=== PATIENT | male | born 1975 | race Caucasian/White ===

== ENCOUNTER 2018-12-03 11:32 | Inpatient (IN) | payer BC ==
[2018-12-03 11:56] VITALS: BMI 20.5
--- NOTE | 2018-12-03 12:33 | HP ---
CIWA Score Nausea/Vomitin Muscle Tremors: 4-Moderate,w/Arms Extend Anxiety: 5 Agitation: 2 Paroxysmal Sweats: No Perspiration Orientation: 0-Oriented Tacttile Disturbances: 0-None Auditory Disturbances: 0-None Visual Disturbances: 3-Moderate Sensitivity Headache: 6-Very Severe CIWA-Ar Total Score: 22 - Admission Criteria OASAS Guidelines: Admission for Medically Managed Detox: Requires at least one of the followin. CIWA greater than 12 2. Seizures within the past 24 hours 3. Delirium tremens within the past 24 hours 4. Hallucinations within the past 24 hours 5. Acute intervention needed for co occurring medical disorder 6. Acute intervention needed for co occurring psychiatric disorder 7. Severe withdrawal that cannot be handled at a lower level of care (continued vomiting, continued diarrhea, abnormal vital signs) requiring intravenous medication and/or fluids 8. Patient presents the following: CIWA greater than 12 Admission Criteria Met: Admission criteria met Admission ROS BHS - HPI Chief Complaint: IM TRYING TO CLEAN UP! Allergies/Adverse Reactions: Allergies Allergy/AdvReac Type Severity Reaction Status Date / Time No Known Allergies Allergy Verified 12/03/18 11:44 History of Present Illness: USED ETOH AND MARIJUANA SINCE AGE 18 DRUG USE STARTED AGE 32 IMPACT INCLUDES HOMELESSNESS, CONSTANT USE MOTIVATING ADL - Ebola screening Have you traveled outside of the country in the last 21 days: No Have you had contact with anyone from an Ebola affected area: No - Review of Systems Constitutional: Loss of Appetite, Unexplained wgt Loss EENT: reports: Blurred Vision Respiratory: reports: No Symptoms reported Cardiac: reports: No Symptoms Reported GI: reports: Nausea, Abdominal cramping : reports: No Symptoms Reported Musculoskeletal: reports: Muscle Pain Integumentary: reports: No Symptoms Reported Neuro: reports: No Symptoms reported Endocrine: reports: No Symptoms Reported Hematology: reports: No Symptoms Reported Psychiatric: reports: Anxious Patient History - Patient Medical History Hx Anemia: No Hx Asthma: No Hx Chronic Obstructive Pulmonary Disease (COPD): No Hx Cancer: No Hx Cardiac Disorders: No Hx Congestive Heart Failure: No Hx Hypertension: No Hx Hypercholesterolemia: No Hx Pacemaker: No HX Cerebrovascular Accident: No Hx Seizures: No Hx Dementia: No Hx Diabetes: No Hx Gastrointestinal Disorders: Yes (acid reflux) Hx Liver Disease: No Hx Genitourinary Disorders: No Hx Sexually Transmitted Disorders: Yes (gonorrhea and syphilis) Hx Renal Disease (ESRD): No Hx Thyroid Disease: No Hx Human Immunodeficiency Virus (HIV): Yes (2009) Hx Hepatitis C: No Hx Depression: No Hx Suicide Attempt: No Hx Bipolar Disorder: No Hx Schizophrenia: No - Patient Surgical History Past Surgical History: No Hx Neurologic Surgery: No Hx Cataract Extraction: No Hx Cardiac Surgery: No Hx Lung Surgery: No Hx Breast Surgery: No Hx Breast Biopsy: No Hx Abdominal Surgery: No Hx Appendectomy: No Hx Cholecystectomy: No Hx Genitourinary Surgery: No Hx Section: No Hx Orthopedic Surgery: Yes (JAW FRACTURE) Anesthesia Reaction: No - PPD History Date: 03/11/14 - Smoking Cessation Smoking history: Former smoker Have you smoked in the past 12 months: No Aproximately how many cigarettes per day: 0 If you are a former smoker, when did you quit?: 5 years ago Hx Chewing Tobacco Use: No Initiated information on smoking cessation: Yes 'Breaking Loose' booklet given: 12/03/18 - Substances abused GHB Substance route: Oral Frequency: Daily Amount used: 1oz Age of first use: 32 Date of last use: 12/02/18 Alcohol Substance route: Oral Frequency: 3-6 times per week Amount used: 1 pint of vodka, 1 6pck of beer Age of first use: 18 Date of last use: 12/01/18 Crystal meth Substance route: Smoking Frequency: Daily Amount used: 1 G Age of first use: 32 Date of last use: 12/02/18 Family Disease History - Family Disease History Family Disease History: Heart Disease: Mother (SUSHIL), CA: Mother Admission Physical Exam [facility] - Vital Signs Vital Signs: Vital Signs - 24 hr 12/03/18 11:44 Temperature 98.0 F Pulse Rate 841 H Respiratory 16 Rate - Physical General Appearance: Yes: Disheveled, Irritable, Anxious HEENTM: Yes: EOMI, Other (mishapen jaw, temporal indurated bony lesion) Respiratory: Yes: Lungs Clear Neck: Yes: No masses,lesions,Nodules Breast: Yes: Breast Exam Deferred Cardiology: Yes: Regular Rhythm, Regular Rate, S1, S2 Abdominal: Yes: Normal Bowel Sounds, Non Tender, Flat Genitourinary: Yes: Within Normal Limits, Other (R INGUINAL HERNIA) Back: Yes: Within Normal Limits, Normal Inspection Musculoskeletal: Yes: full range of Motion, Gait Steady Extremities: Yes: Within Normal Limits, Normal Capillary Refill, Normal Inspection Neurological: Yes: [employer] II-XII NML intact, Fully Oriented, Alert, Motor Strength 5/5, Normal Mood/Affect Integumentary: Yes: Within Normal Limits - Diagnostic (1) Gammahydroxy butarate (GHB) use disorder, severe, in early remission, in controlled environment, dependence Current Visit: Yes Status: Acute (2) Amphetamine dependence Current Visit: Yes Status: Acute (3) GERD (gastroesophageal reflux disease) Current Visit: No Status: Acute (4) Syphilis Current Visit: No Status: Acute (5) Alcohol dependence Current Visit: Yes Status: Chronic (6) HIV (human immunodeficiency virus infection) Current Visit: Yes Status: Chronic Breathalyzer - Breathalyzer Breathalyzer: 0.006 Urine Drug Screen - Test Device Lot number: [id number] Expiration date: 08/19/19 - Control Is test valid?: Yes - Results Drug screen NEGATIVE: No (TCA) Urine drug screen results: MET-Methamphetamine, BZO-Benzodiazepines Inpatient Rehab Admission - Rehab Decision to Admit Inpatient rehab admission?: No
[2018-12-03] MEDS ORDERED: BISMUTH SUBSALICYLATE 262 MG/15 ML BTL PO PRN (12:39)
[2018-12-03] MEDS ORDERED: MAG HYDROX/AL HYDROX/SIMETH 30 ML UNIT-DOSE CUP PO PRN (12:39)
[2018-12-03] MEDS ORDERED: MENTHOL/PHENOL 1 EACH UD MM PRN (12:39)
[2018-12-03] MEDS ORDERED: MAGNESIUM HYDROX 2400MG/30ML ORAL SUSPENSION 30 ML CUP PO PRN (12:39)
[2018-12-03] MEDS ORDERED: IBUPROFEN 400 MG TABLET (FP) PO PRN (12:39)
[2018-12-03] MEDS ORDERED: MAGNESIUM CITRATE 300 ML BOTTLE PO PRN (12:39)
[2018-12-03] MEDS ORDERED: MELATONIN 5 MG TABLETS PO PRN (12:39)
[2018-12-03] MEDS ORDERED: ACETAMINOPHEN 325 MG TABLET (FP) PO PRN ×2 (12:39)
[2018-12-03] MEDS: hydrOXYzine HCL 25 MG TABLET (FP) PO PRN (14:39)
[2018-12-03] MEDS: chlordiazePOXIDE HCL 25 MG CAPSULE PO PRN (14:39)
[2018-12-03] MEDS: chlordiazePOXIDE HCL 25 MG CAPSULE PO SCH ×2 (16:46→22:35)
[2018-12-03 17:16] LABS: BILIRUBIN,TOTAL 0.4 mg/dL (0.2-1); BLOOD UREA NITROGEN 12.6 mg/dL (7-18); CALCIUM 8.4 mg/dL (8.5-10.1); CREATININE 0.9 mg/dL (0.55-1.3); POTASSIUM 4.2 mmol/L (3.5-5.1); TOT PROT 6.8 g/dl (6.4-8.2)
[2018-12-03 17:23] LABS: HEMOGLOBIN 11.7 GM/dL (11.7-16.9); MCH 30.6 pg (25.7-33.7); MCHC 33.5 g/dl (32.0-35.9); MEAN CELL VOLUME 91.4 fl (80-96); MEAN PLT VOLUME 7.7 fl (7.5-11.1); PLATELET COUNT 292 K/MM3 (134-434); RBC 3.83 M/mm3 (4.00-5.60); RDW 13.9 % (11.9-15.9); WHITE BLOOD COUNT 6.9 K/mm3 (4.0-10.0)
[2018-12-03] MEDS: THIAMINE HCL 100 MG TABLET (FP) PO SCH (22:34)
[2018-12-04] MEDS: chlordiazePOXIDE HCL 25 MG CAPSULE PO SCH ×4 (05:32→22:39)
[2018-12-04 09:09] LABS: RPR REACTIVE 1:4 (NONREACTIVE)
[2018-12-04 09:10] LABS: TREPONEMA ANTIBODY PREVIOUSLY REACTIVE (NONREACTIVE)
--- NOTE | 2018-12-04 09:35 | PN ---
S CIWA - CIWA Score Nausea/Vomitin-No Nausea/No Vomiting Muscle Tremors: 3 Anxiety: 3 Agitation: 0-Normal Activity Paroxysmal Sweats: 3 Orientation: 1-Uncertain about Date Tacttile Disturbances: 0-None Auditory Disturbances: 0-None Visual Disturbances: 0-None Headache: 2-Mild CIWA-Ar Total Score: 12 S Progress Note (SOAP) Subjective: c/o shakes, sweats, anxiety, headache, and tiredness. Objective: 12/04/18 09:29 Vital Signs 12/04/18 12/04/18 03:30 06:00 Temperature 97.9 F Pulse Rate 81 Respiratory 18 130 H Rate Lab Results WBC 6.9 K/mm3 (4.0-10.0) 12/03/18 13:40 RBC 3.83 M/mm3 (4.00-5.60) L 12/03/18 13:40 Hgb 11.7 GM/dL (11.7-16.9) 12/03/18 13:40 Hct 35.0 % (35.4-49) L D 12/03/18 13:40 MCV 91.4 fl (80-96) 12/03/18 13:40 MCHC 33.5 g/dl (32.0-35.9) 12/03/18 13:40 RDW 13.9 % (11.9-15.9) 12/03/18 13:40 Plt Count 292 K/MM3 (134-434) 12/03/18 13:40 Sodium 139 mmol/L (136-145) 12/03/18 13:40 Potassium 4.2 mmol/L (3.5-5.1) 12/03/18 13:40 Chloride 107 mmol/L (98-107) 12/03/18 13:40 Carbon Dioxide 27 mmol/L (21-32) 12/03/18 13:40 Anion Gap 5 MMOL/L (8-16) L 12/03/18 13:40 BUN 12.6 mg/dL (7-18) 12/03/18 13:40 Creatinine 0.9 mg/dL (0.55-1.3) 12/03/18 13:40 Random Glucose 71 mg/dL (74-106) L 12/03/18 13:40 Calcium 8.4 mg/dL (8.5-10.1) L 12/03/18 13:40 Labs noted. Assessment: 12/04/18 09:31 AOX3, in no acute respiratory distress. Full ROM, ambulating in the unit. Withdrawal symptoms. Plan: continue detox.
[2018-12-04] MEDS: PATIENT'S OWN MEDICATION (NON-FORMULARY) (Bictegrav/Emtricit/Tenofov Ala 1 TABLET) PO SCH (10:00)
[2018-12-04] MEDS: PRENATAL VITAMINS W/ FOLIC ACID TABLET (FP) PO SCH (10:13)
[2018-12-04] MEDS ORDERED: PNEUMOC 13-VAL CONJ-DIP CRM/PF 0.5 ML DISP.SYRIN IM ONE (12:00)
[2018-12-04] MEDS: chlordiazePOXIDE HCL 25 MG CAPSULE PO PRN (12:06)
[2018-12-04] MEDS: hydrOXYzine HCL 25 MG TABLET (FP) PO PRN (18:16)
[2018-12-04] MEDS: THIAMINE HCL 100 MG TABLET (FP) PO SCH (22:39)
[2018-12-05] MEDS: chlordiazePOXIDE HCL 25 MG CAPSULE PO SCH ×4 (05:58→22:04)
[2018-12-05] MEDS: hydrOXYzine HCL 25 MG TABLET (FP) PO PRN (08:54)
[2018-12-05] MEDS: PATIENT'S OWN MEDICATION (NON-FORMULARY) (Bictegrav/Emtricit/Tenofov Ala 1 TABLET) PO SCH (10:26)
[2018-12-05] MEDS: PRENATAL VITAMINS W/ FOLIC ACID TABLET (FP) PO SCH (10:27)
[2018-12-05] MEDS: METHOCARBAMOL 500 MG TABLET PO PRN ×2 (11:18→22:03)
--- NOTE | 2018-12-05 11:29 | PN ---
S CIWA - CIWA Score Nausea/Vomitin-No Nausea/No Vomiting Muscle Tremors: 2 Anxiety: 3 Agitation: 0-Normal Activity Paroxysmal Sweats: 3 Orientation: 0-Oriented Tacttile Disturbances: 0-None Auditory Disturbances: 0-None Visual Disturbances: 0-None Headache: 2-Mild CIWA-Ar Total Score: 10 S Progress Note (SOAP) Subjective: c/o sweats, anxiety, and headache. Objective: 12/05/18 11:30 Vital Signs 12/05/18 12/05/18 06:53 09:36 Temperature 96.8 F L 98.1 F Pulse Rate 98 H 94 H Respiratory 18 18 Rate Blood Pressure 135/87 134/67 Lab Results WBC 6.9 K/mm3 (4.0-10.0) 12/03/18 13:40 RBC 3.83 M/mm3 (4.00-5.60) L 12/03/18 13:40 Hgb 11.7 GM/dL (11.7-16.9) 12/03/18 13:40 Hct 35.0 % (35.4-49) L D 12/03/18 13:40 MCV 91.4 fl (80-96) 12/03/18 13:40 MCHC 33.5 g/dl (32.0-35.9) 12/03/18 13:40 RDW 13.9 % (11.9-15.9) 12/03/18 13:40 Plt Count 292 K/MM3 (134-434) 12/03/18 13:40 Sodium 139 mmol/L (136-145) 12/03/18 13:40 Potassium 4.2 mmol/L (3.5-5.1) 12/03/18 13:40 Chloride 107 mmol/L (98-107) 12/03/18 13:40 Carbon Dioxide 27 mmol/L (21-32) 12/03/18 13:40 Anion Gap 5 MMOL/L (8-16) L 12/03/18 13:40 BUN 12.6 mg/dL (7-18) 12/03/18 13:40 Creatinine 0.9 mg/dL (0.55-1.3) 12/03/18 13:40 Random Glucose 71 mg/dL (74-106) L 12/03/18 13:40 Calcium 8.4 mg/dL (8.5-10.1) L 12/03/18 13:40 Labs noted. Assessment: 12/05/18 11:31 AOX3, in no acute distress. Full ROM, ambulating in the unit. Withdrawal symptoms. Plan: continue detox.
[2018-12-05] MEDS: chlordiazePOXIDE HCL 25 MG CAPSULE PO PRN (14:39)
[2018-12-05] MEDS: THIAMINE HCL 100 MG TABLET (FP) PO SCH (22:04)
[2018-12-06] MEDS ORDERED: chlordiazePOXIDE HCL 10 MG CAPSULE PO PRN
[2018-12-06] MEDS ORDERED: chlordiazePOXIDE HCL 10 MG CAPSULE PO SCH (05:00)
[2018-12-06 06:44] VITALS: BP 123/81; PULSE 83; TEMP 97.9
--- NOTE | 2018-12-06 15:31 | PN ---
S Progress Note Note: pt states he needs to leave today. Pt was made aware that he has not completed his detox regimen and he is at risk of relapse, seizures, DT's however, pt chose to sign out AMA.
--- NOTE | 2018-12-06 15:32 | DS ---
[facility] Detox Discharge Summary Admission Date: 12/03/18 - History Present History: Alcohol Dependence - Physical Exam Results Vital Signs: Vital Signs Temperature 97.9 F 12/06/18 06:43 Pulse Rate 83 12/06/18 06:43 Respiratory Rate 16 12/06/18 06:43 Blood Pressure 123/81 12/06/18 06:43 O2 Sat by Pulse Oximetry (%) - Treatment Hospital Course: Discharged Condition Good, Rehab Referral Accepted Patient has Accepted a Rehab Referral to: pt declined rehab; referral provided - Medication Discharge Medications: Ambulatory Orders Bictegrav/Emtricit/Tenofov Ala [Biktarvy 50-200-25 mg Tablet] 1 tablet PO DAILY 12/03/18 Ibuprofen 600 mg PO TID 12/03/18 - Diagnosis (1) Amphetamine dependence Status: Acute (2) GERD (gastroesophageal reflux disease) Status: Acute Qualifiers: Esophagitis presence: without esophagitis Qualified Code(s): K21.9 - Gastro -esophageal reflux disease without esophagitis (3) Gammahydroxy butarate (GHB) use disorder, severe, in early remission, in controlled environment, dependence Status: Acute (4) Alcohol dependence Status: Chronic Qualifiers: Substance use status: uncomplicated Qualified Code(s): F10.20 - Alcohol dependence, uncomplicated (5) HIV (human immunodeficiency virus infection) Status: Chronic Qualifiers: HIV symptom status: unspecified Qualified Code(s): B20 - Human immunodeficiency virus [HIV] disease - AMA Did Patient Leave Against Medical Advice: Yes
[2018-12-07] MEDS ORDERED: chlordiazePOXIDE HCL 10 MG CAPSULE PO SCH (05:00)
[2018-12-08] MEDS ORDERED: chlordiazePOXIDE HCL 10 MG CAPSULE PO ONE (05:00)
== END 2018-12-06 09:32 | disposition left against medical advice (07) | DRG 770 ==
LOC: YASAS 11:32 → Y6N 13:26
PROVIDERS: ADMIT Surgery; ATTEND Surgery
PROC: HZ2ZZZZ Detoxification Services for Substance Abuse Treatment (ICD-10-PCS; principal; 2018-12-03)
DX: F10.230 Alcohol dependence with withdrawal, uncomplicated (principal); F15.20 Other stimulant dependence, uncomplicated; F19.21 Other psychoactive substance dependence, in remission; Z21 Asymptomatic human immunodeficiency virus [HIV] infection status; K21.9 Gastro-esophageal reflux disease without esophagitis; Z87.891 Personal history of nicotine dependence; Z87.438 Personal history of other diseases of male genital organs
CPT/HCPCS: 36415; 80053; 85027; 86480; 86593; 86780; 90670

== ENCOUNTER 2023-04-24 19:12 | Inpatient (IN) | payer BC ==
[2023-04-24 20:37] VITALS: BMI 21.7
[2023-04-24] MEDS ORDERED: chlordiazePOXIDE HCL 25 MG CAPSULE PO PRN (22:14)
[2023-04-24] MEDS ORDERED: P-EPHED 60MG/TRIPROLIDI 2.5MG TABLET PO PRN (22:24)
[2023-04-24] MEDS ORDERED: MAG HYDROX/AL HYDROX/SIMETH 30 ML UNIT-DOSE CUP PO PRN (22:24)
[2023-04-24] MEDS ORDERED: MAGNESIUM HYDROX 2400MG/30ML ORAL SUSPENSION 30 ML CUP PO PRN (22:24)
[2023-04-24] MEDS ORDERED: ONDANSETRON *ODT* 4 MG TABLET SL PRN (22:24)
[2023-04-24] MEDS ORDERED: DICYCLOMINE HCL 10 MG CAPSULE PO PRN (22:24)
[2023-04-24] MEDS ORDERED: IBUPROFEN 400 MG TABLET (FP) PO PRN (22:24)
[2023-04-24] MEDS ORDERED: POLYETHYLENE GLYCOL (HEALTHYLAX) 3350 17 GM PACKET PO PRN (22:24)
[2023-04-24] MEDS ORDERED: ACETAMINOPHEN 325 MG TABLET (FP) PO PRN (22:24)
[2023-04-24] MEDS ORDERED: LOPERAMIDE HCL 2 MG CAPSULE PO PRN (22:24)
[2023-04-24] MEDS ORDERED: BENZOCAINE/MENTHOL (CHLORASEPTIC ) LOZENGE MM PRN (22:24)
[2023-04-24] MEDS ORDERED: guaiFENesin 600 MG TABLET.ER (FP) PO PRN (22:24)
[2023-04-24] MEDS ORDERED: BISMUTH SUBSALICYLATE 524 MG/30 ML PO PRN (22:24)
[2023-04-24] MEDS ORDERED: BENZONATATE 200 MG CAPSULE PO PRN (22:24)
[2023-04-24] MEDS ORDERED: chlordiazePOXIDE HCL 25 MG CAPSULE ONE (23:13)
[2023-04-24] MEDS: chlordiazePOXIDE HCL 25 MG CAPSULE PO SCH (23:16)
[2023-04-25] MEDS: chlordiazePOXIDE HCL 25 MG CAPSULE PO SCH ×4 (05:20→22:36)
[2023-04-25 08:30] LABS: HEMATOCRIT 35.5 % (35.4-49); HEMOGLOBIN 12.3 GM/dL (11.7-16.9); MCH 37.2 pg (25.7-33.7); MCHC 34.8 g/dl (32.0-35.9); MEAN PLT VOLUME 6.8 fl (7.5-11.1); PLATELET COUNT 238 10^3/uL (134-434); RBC 3.32 M/mm3 (4.00-5.60); RDW 14.1 % (11.9-15.9); WHITE BLOOD COUNT 3.6 K/mm3 (4.0-10.0)
[2023-04-25 08:37] LABS: CHLORIDE 104 mmol/L (98-107); POTASSIUM 4.8 mmol/L (3.5-5.1); SODIUM 139 mmol/L (136-145)
[2023-04-25 08:44] LABS: CALCIUM 8.3 mg/dL (8.5-10.1); GLUCOSE,RANDOM 95 mg/dL (74-106)
[2023-04-25 08:45] LABS: ALBUMIN 2.8 g/dl (3.4-5.0); ANION GAP 6 mmol/L (4-13); BLOOD UREA NITROGEN 7.3 mg/dL (7-18); CO2 29 mmol/L (21-32)
[2023-04-25 08:48] LABS: CREATININE 0.8 mg/dL (0.55-1.3); SGOT/AST 136 U/L (15-37); SGPT/ALT 74 U/L (13-61)
[2023-04-25 08:49] LABS: BILIRUBIN,TOTAL 0.5 mg/dL (0.2-1); TOT PROT 5.7 g/dl (6.4-8.2)
[2023-04-25 08:50] LABS: ALK PHOS 72 U/L (45-117)
[2023-04-25] MEDS ORDERED: cloNIDine HCL 0.1 MG TABLET PO ONE (09:43)
[2023-04-25] MEDS: PRENATAL VITAMINS W/ FOLIC ACID TABLET (FP) PO SCH (10:08)
[2023-04-25] MEDS: BICTEGRAV/EMTRICIT/TENOFOV (BIKTARVY) 50-200-25 MG TABLET PO SCH (10:09)
[2023-04-25] MEDS: IBUPROFEN 600 MG TABLET (FP) PO PRN (17:18)
[2023-04-25] MEDS: MELATONIN 5 MG TABLETS PO SCH (22:35)
[2023-04-25] MEDS: THIAMINE HCL 100 MG TABLET (FP) PO SCH (22:36)
[2023-04-26] MEDS: chlordiazePOXIDE HCL 25 MG CAPSULE PO SCH ×4 (05:17→22:26)
[2023-04-26] MEDS: BICTEGRAV/EMTRICIT/TENOFOV (BIKTARVY) 50-200-25 MG TABLET PO SCH (07:09)
[2023-04-26] MEDS: PRENATAL VITAMINS W/ FOLIC ACID TABLET (FP) PO SCH (10:18)
[2023-04-26] MEDS: METHOCARBAMOL 500 MG TABLET PO PRN ×2 (10:19→17:28)
[2023-04-26] MEDS: NICOTINE POLACRILEX 2 MG GUM BUC PRN ×2 (14:05→17:30)
[2023-04-26] MEDS: hydrOXYzine PAMOATE 25 MG CAPSULE (FP) PO PRN ×3 (17:28→22:27)
[2023-04-26] MEDS: THIAMINE HCL 100 MG TABLET (FP) PO SCH (22:26)
[2023-04-26] MEDS: MELATONIN 5 MG TABLETS PO SCH (22:26)
[2023-04-27] MEDS ORDERED: chlordiazePOXIDE HCL 10 MG CAPSULE PO PRN
[2023-04-27] MEDS: chlordiazePOXIDE HCL 10 MG CAPSULE PO SCH ×2 (05:23→11:31)
[2023-04-27] MEDS: hydrOXYzine PAMOATE 25 MG CAPSULE (FP) PO PRN (05:24)
[2023-04-27] MEDS: BICTEGRAV/EMTRICIT/TENOFOV (BIKTARVY) 50-200-25 MG TABLET PO SCH (07:22)
[2023-04-27] MEDS: METHOCARBAMOL 500 MG TABLET PO PRN (08:37)
[2023-04-27 08:57] VITALS: BP 150/102; PULSE 89; RESP 18; TEMP 97.4
[2023-04-27] MEDS: PRENATAL VITAMINS W/ FOLIC ACID TABLET (FP) PO SCH (10:14)
[2023-04-27] MEDS: IBUPROFEN 600 MG TABLET (FP) PO PRN (11:09)
[2023-04-27] MEDS: NICOTINE POLACRILEX 2 MG GUM BUC PRN (11:10)
[2023-04-28] MEDS ORDERED: chlordiazePOXIDE HCL 10 MG CAPSULE PO SCH (05:00)
[2023-04-29] MEDS ORDERED: chlordiazePOXIDE HCL 10 MG CAPSULE PO ONE (05:00)
== END 2023-04-27 13:00 | disposition left against medical advice (07) | DRG 770 ==
LOC: YASAS 19:12 → Y3N 22:20
PROVIDERS: ADMIT Allergy & Immunology; ATTEND Surgery
PROC: HZ2ZZZZ Detoxification Services for Substance Abuse Treatment (ICD-10-PCS; principal; 2023-04-25)
DX: F10.230 Alcohol dependence with withdrawal, uncomplicated (principal); F12.20 Cannabis dependence, uncomplicated; F17.210 Nicotine dependence, cigarettes, uncomplicated; Z21 Asymptomatic human immunodeficiency virus [HIV] infection status; K21.9 Gastro-esophageal reflux disease without esophagitis
CPT/HCPCS: 36415; 80053; 80307; 85027; 86593; 86780; 87635

== ENCOUNTER 2023-05-28 16:35 | Inpatient (IN) | payer BC ==
[2023-05-28 17:45] VITALS: BMI 21.7
[2023-05-28] MEDS ORDERED: propRANOLol HCL 10 MG TABLET PO ONE (19:28)
[2023-05-28] MEDS ORDERED: DICYCLOMINE HCL 10 MG CAPSULE PO PRN (20:02)
[2023-05-28] MEDS ORDERED: MAGNESIUM HYDROX 2400MG/30ML ORAL SUSPENSION 30 ML CUP PO PRN (20:02)
[2023-05-28] MEDS ORDERED: NICOTINE POLACRILEX 2 MG GUM BUC PRN (20:02)
[2023-05-28] MEDS ORDERED: hydrOXYzine PAMOATE 25 MG CAPSULE (FP) PO PRN (20:02)
[2023-05-28] MEDS ORDERED: METHOCARBAMOL 500 MG TABLET PO PRN (20:02)
[2023-05-28] MEDS ORDERED: POLYETHYLENE GLYCOL (HEALTHYLAX) 3350 17 GM PACKET PO PRN (20:02)
[2023-05-28] MEDS ORDERED: IBUPROFEN 600 MG TABLET (FP) PO PRN (20:02)
[2023-05-28] MEDS ORDERED: LOPERAMIDE HCL 2 MG CAPSULE PO PRN (20:02)
[2023-05-28] MEDS ORDERED: ACETAMINOPHEN 325 MG TABLET (FP) PO PRN (20:02)
[2023-05-28] MEDS ORDERED: IBUPROFEN 400 MG TABLET (FP) PO PRN (20:02)
[2023-05-28] MEDS ORDERED: guaiFENesin 600 MG TABLET.ER (FP) PO PRN (20:02)
[2023-05-28] MEDS ORDERED: P-EPHED 60MG/TRIPROLIDI 2.5MG TABLET PO PRN (20:02)
[2023-05-28] MEDS ORDERED: BENZONATATE 200 MG CAPSULE PO PRN (20:02)
[2023-05-28] MEDS ORDERED: BENZOCAINE/MENTHOL (CHLORASEPTIC ) LOZENGE MM PRN (20:02)
[2023-05-28] MEDS ORDERED: TRIMETHOBENZAMIDE HCL 200MG/2ML INJ IM ONE (21:13)
[2023-05-28] MEDS ORDERED: chlordiazePOXIDE HCL 25 MG CAPSULE ONE (21:13)
[2023-05-28] MEDS: TRIMETHOBENZAMIDE HCL 200MG/2ML INJ IM ONE (21:24)
[2023-05-28] MEDS: chlordiazePOXIDE HCL 25 MG CAPSULE PO ONE (21:24)
[2023-05-28] MEDS: chlordiazePOXIDE HCL 25 MG CAPSULE PO SCH (22:47)
[2023-05-28] MEDS: MELATONIN 5 MG TABLETS PO SCH (22:49)
[2023-05-28] MEDS: THIAMINE HCL 100 MG TABLET (FP) PO SCH (22:50)
[2023-05-28] MEDS: MAG HYDROX/AL HYDROX/SIMETH 30 ML UNIT-DOSE CUP PO PRN (22:50)
[2023-05-28] MEDS: propRANOLol HCL 10 MG TABLET PO ONE (23:56)
[2023-05-29] MEDS: PRENATAL VITAMINS W/ FOLIC ACID TABLET (FP) PO SCH (09:05)
[2023-05-29] MEDS: BICTEGRAV/EMTRICIT/TENOFOV (BIKTARVY) 50-200-25 MG TABLET PO SCH (09:05)
[2023-05-29] MEDS: BISMUTH SUBSALICYLATE 524 MG/30 ML PO PRN (09:06)
[2023-05-29 10:59] LABS: POTASSIUM 3.6 mmol/L (3.5-5.1)
[2023-05-29 11:04] LABS: HEMOGLOBIN 13.4 GM/dL (11.7-16.9); MCH 36.9 pg (25.7-33.7); MCHC 35.2 g/dl (32.0-35.9); PLATELET COUNT 355 10^3/uL (134-434); RBC 3.62 M/mm3 (4.00-5.60); RDW 13.4 % (11.9-15.9)
[2023-05-29 11:07] LABS: CALCIUM 7.9 mg/dL (8.5-10.1)
[2023-05-29 11:09] LABS: ALBUMIN 2.8 g/dl (3.4-5.0); BLOOD UREA NITROGEN 5.4 mg/dL (7-18)
[2023-05-29 11:11] LABS: CREATININE 0.9 mg/dL (0.55-1.3)
[2023-05-29 11:13] LABS: BILIRUBIN,TOTAL 0.7 mg/dL (0.2-1); TOT PROT 6.3 g/dl (6.4-8.2)
[2023-05-29] MEDS: chlordiazePOXIDE HCL 25 MG CAPSULE PO PRN (15:58)
[2023-05-29] MEDS: ONDANSETRON *ODT* 4 MG TABLET SL PRN (17:51)
[2023-05-30] MEDS: chlordiazePOXIDE HCL 25 MG CAPSULE PO SCH (06:00)
[2023-05-30 10:02] VITALS: BP 112/77; PULSE 85; RESP 16; TEMP 97.8
[2023-05-31] MEDS ORDERED: chlordiazePOXIDE HCL 10 MG CAPSULE PO PRN
[2023-05-31] MEDS ORDERED: chlordiazePOXIDE HCL 10 MG CAPSULE PO SCH (05:00)
[2023-06-01] MEDS ORDERED: chlordiazePOXIDE HCL 10 MG CAPSULE PO SCH (05:00)
[2023-06-02] MEDS ORDERED: chlordiazePOXIDE HCL 10 MG CAPSULE PO ONE (05:00)
== END 2023-05-30 12:10 | disposition left against medical advice (07) | DRG 770 ==
LOC: YASAS 16:35 → Y6N 21:13
PROVIDERS: ADMIT Allergy & Immunology; ATTEND Surgery
PROC: HZ2ZZZZ Detoxification Services for Substance Abuse Treatment (ICD-10-PCS; principal; 2023-05-28)
DX: F10.230 Alcohol dependence with withdrawal, uncomplicated (principal); F10.220 Alcohol dependence with intoxication, uncomplicated; F17.210 Nicotine dependence, cigarettes, uncomplicated; F10.280 Alcohol dependence with alcohol-induced anxiety disorder; F10.282 Alcohol dependence with alcohol-induced sleep disorder; F10.24 Alcohol dependence with alcohol-induced mood disorder; U07.1 COVID-19; Z21 Asymptomatic human immunodeficiency virus [HIV] infection status; R76.8 Other specified abnormal immunological findings in serum; Z91.410 Personal history of adult physical and sexual abuse; Z63.0 Problems in relationship with spouse or partner; Z56.0 Unemployment, unspecified; Z59.00 Homelessness unspecified
CPT/HCPCS: 0241U-QW; 36415; 80053; 85027; 86593; 86780; 93005; 93010; Q0162

== ENCOUNTER 2023-08-03 10:32 | Inpatient (IN) | payer BC ==
[2023-08-03 11:26] VITALS: BP 132/88; PULSE 90; RESP 16; TEMP 97.6; BMI 22.8
[2023-08-03] MEDS ORDERED: chlordiazePOXIDE HCL 25 MG CAPSULE PO PRN (12:14)
[2023-08-03] MEDS ORDERED: LOPERAMIDE HCL 2 MG CAPSULE PO PRN (12:20)
[2023-08-03] MEDS ORDERED: BENZONATATE 200 MG CAPSULE PO PRN (12:20)
[2023-08-03] MEDS ORDERED: BENZOCAINE/MENTHOL (CHLORASEPTIC ) LOZENGE MM PRN (12:20)
[2023-08-03] MEDS ORDERED: guaiFENesin 600 MG TABLET.ER (FP) PO PRN (12:20)
[2023-08-03] MEDS ORDERED: MAGNESIUM HYDROX 2400MG/30ML ORAL SUSPENSION 30 ML CUP PO PRN (12:20)
[2023-08-03] MEDS ORDERED: MAG HYDROX/AL HYDROX/SIMETH 30 ML UNIT-DOSE CUP PO PRN (12:20)
[2023-08-03] MEDS ORDERED: P-EPHED 60MG/TRIPROLIDI 2.5MG TABLET PO PRN (12:20)
[2023-08-03] MEDS ORDERED: ONDANSETRON *ODT* 4 MG TABLET SL PRN (12:20)
[2023-08-03] MEDS ORDERED: POLYETHYLENE GLYCOL (HEALTHYLAX) 3350 17 GM PACKET PO PRN (12:20)
[2023-08-03] MEDS ORDERED: ACETAMINOPHEN 325 MG TABLET (FP) PO PRN (12:20)
[2023-08-03] MEDS ORDERED: DICYCLOMINE HCL 10 MG CAPSULE PO PRN (12:20)
[2023-08-03] MEDS ORDERED: IBUPROFEN 400 MG TABLET (FP) PO PRN (12:20)
[2023-08-03] MEDS ORDERED: METHOCARBAMOL 500 MG TABLET PO PRN (12:20)
[2023-08-03] MEDS ORDERED: hydrOXYzine PAMOATE 25 MG CAPSULE (FP) PO PRN (12:20)
[2023-08-03] MEDS ORDERED: BISMUTH SUBSALICYLATE 524 MG/30 ML PO PRN (12:20)
[2023-08-03] MEDS ORDERED: NICOTINE POLACRILEX 2 MG GUM BUC PRN (12:20)
[2023-08-03] MEDS ORDERED: IBUPROFEN 600 MG TABLET (FP) PO PRN (12:20)
[2023-08-03] MEDS: chlordiazePOXIDE HCL 25 MG CAPSULE PO ONE (12:33)
[2023-08-03] MEDS: levETIRAcetam 500 MG TABLET (FP) PO SCH (12:33)
[2023-08-03] MEDS ORDERED: chlordiazePOXIDE HCL 25 MG CAPSULE ONE (12:37)
[2023-08-03] MEDS ORDERED: levETIRAcetam 500 MG TABLET (FP) PO ONE (12:37)
[2023-08-03] MEDS ORDERED: chlordiazePOXIDE HCL 25 MG CAPSULE PO SCH (17:00)
[2023-08-03] MEDS ORDERED: THIAMINE HCL 100 MG TABLET (FP) PO SCH (22:00)
[2023-08-03] MEDS ORDERED: MELATONIN 5 MG TABLETS PO SCH (22:00)
[2023-08-04] MEDS ORDERED: PRENATAL VITAMINS W/ FOLIC ACID TABLET (FP) PO SCH (10:00)
[2023-08-05] MEDS ORDERED: chlordiazePOXIDE HCL 25 MG CAPSULE PO SCH (05:00)
[2023-08-06] MEDS ORDERED: chlordiazePOXIDE HCL 10 MG CAPSULE PO PRN
[2023-08-06] MEDS ORDERED: chlordiazePOXIDE HCL 10 MG CAPSULE PO SCH (05:00)
[2023-08-07] MEDS ORDERED: chlordiazePOXIDE HCL 10 MG CAPSULE PO SCH (05:00)
[2023-08-08] MEDS ORDERED: chlordiazePOXIDE HCL 10 MG CAPSULE PO ONE (05:00)
== END 2023-08-03 15:33 | disposition left against medical advice (07) | DRG 770 ==
LOC: YASAS 10:32 → Y6N 12:42
PROVIDERS: ADMIT Allergy & Immunology; ATTEND Psychiatry & Neurology Pain Medicine
PROC: HZ2ZZZZ Detoxification Services for Substance Abuse Treatment (ICD-10-PCS; principal; 2023-08-03)
DX: F10.230 Alcohol dependence with withdrawal, uncomplicated (principal); F15.20 Other stimulant dependence, uncomplicated; F17.210 Nicotine dependence, cigarettes, uncomplicated; Z21 Asymptomatic human immunodeficiency virus [HIV] infection status; I10 Essential (primary) hypertension; M54.50 Low back pain, unspecified; G89.29 Other chronic pain; Z86.69 Personal history of other diseases of the nervous system and sense organs; Z86.19 Personal history of other infectious and parasitic diseases

== ENCOUNTER 2023-08-25 20:46 | Inpatient (IN) | payer BC ==
[2023-08-25 21:39] VITALS: BMI 20.6
[2023-08-25] MEDS ORDERED: chlordiazePOXIDE HCL 25 MG CAPSULE PO PRN (22:37)
[2023-08-25] MEDS ORDERED: LOPERAMIDE HCL 2 MG CAPSULE PO PRN (22:41)
[2023-08-25] MEDS ORDERED: MAGNESIUM HYDROX 2400MG/30ML ORAL SUSPENSION 30 ML CUP PO PRN (22:41)
[2023-08-25] MEDS ORDERED: IBUPROFEN 400 MG TABLET (FP) PO PRN (22:41)
[2023-08-25] MEDS ORDERED: MAG HYDROX/AL HYDROX/SIMETH 30 ML UNIT-DOSE CUP PO PRN (22:41)
[2023-08-25] MEDS ORDERED: NICOTINE POLACRILEX 2 MG GUM BUC PRN (22:41)
[2023-08-25] MEDS ORDERED: P-EPHED 60MG/TRIPROLIDI 2.5MG TABLET PO PRN (22:41)
[2023-08-25] MEDS ORDERED: guaiFENesin 600 MG TABLET.ER (FP) PO PRN (22:41)
[2023-08-25] MEDS ORDERED: NICOTINE POLACRILEX 2 MG LOZENGE BC PRN (22:41)
[2023-08-25] MEDS ORDERED: DICYCLOMINE HCL 10 MG CAPSULE PO PRN (22:41)
[2023-08-25] MEDS ORDERED: BISMUTH SUBSALICYLATE 524 MG/30 ML PO PRN (22:41)
[2023-08-25] MEDS ORDERED: BENZONATATE 200 MG CAPSULE PO PRN (22:41)
[2023-08-25] MEDS ORDERED: IBUPROFEN 600 MG TABLET (FP) PO PRN (22:41)
[2023-08-25] MEDS ORDERED: ONDANSETRON *ODT* 4 MG TABLET SL PRN (22:41)
[2023-08-25] MEDS ORDERED: POLYETHYLENE GLYCOL (HEALTHYLAX) 3350 17 GM PACKET PO PRN (22:41)
[2023-08-25] MEDS ORDERED: BENZOCAINE/MENTHOL (CHLORASEPTIC ) LOZENGE MM PRN (22:41)
[2023-08-26] MEDS: chlordiazePOXIDE HCL 10 MG CAPSULE PO SCH
[2023-08-26] MEDS: MELATONIN 5 MG TABLETS PO SCH (00:50)
[2023-08-26] MEDS: traZODone HCL 50 MG TABLET (FP) PO ONE (00:50)
[2023-08-26] MEDS: BICTEGRAV/EMTRICIT/TENOFOV (BIKTARVY) 50-200-25 MG TABLET PO SCH (07:22)
[2023-08-26] MEDS: PRENATAL VITAMINS W/ FOLIC ACID TABLET (FP) PO SCH (10:20)
[2023-08-26 11:56] LABS: CHLORIDE 98 mmol/L (98-107); POTASSIUM 3.5 mmol/L (3.5-5.1); SODIUM 131 mmol/L (136-145)
[2023-08-26 12:03] LABS: HEMATOCRIT 35.5 % (35.4-49); HEMOGLOBIN 12.4 GM/dL (11.7-16.9); MCH 35.8 pg (25.7-33.7); MEAN CELL VOLUME 102.2 fl (80-96); PLATELET COUNT 154 10^3/uL (134-434); RBC 3.47 M/mm3 (4.00-5.60); WHITE BLOOD COUNT 4.3 K/mm3 (4.0-10.0)
[2023-08-26 12:26] LABS: CALCIUM 8.8 mg/dL (8.5-10.1)
[2023-08-26 12:27] LABS: ALBUMIN 3.2 g/dl (3.4-5.0); BLOOD UREA NITROGEN 12.3 mg/dL (7-18); CO2 26 mmol/L (21-32); GLUCOSE,RANDOM 90 mg/dL (74-106)
[2023-08-26 12:30] LABS: CREATININE 2.8 mg/dL (0.55-1.3); SGOT/AST 53 U/L (15-37); SGPT/ALT 35 U/L (13-61)
[2023-08-26 12:31] LABS: ALK PHOS 91 U/L (45-117); ANION GAP 8 mmol/L (4-13); BILIRUBIN,TOTAL 0.6 mg/dL (0.2-1); TOT PROT 6.9 g/dl (6.4-8.2)
[2023-08-26] MEDS: hydrOXYzine PAMOATE 25 MG CAPSULE (FP) PO PRN (14:41)
[2023-08-26 16:56] VITALS: RESP 16
[2023-08-26] MEDS: METHOCARBAMOL 500 MG TABLET PO PRN (21:18)
[2023-08-26] MEDS ORDERED: MELATONIN 5 MG TABLETS PO SCH (22:00)
[2023-08-26] MEDS: THIAMINE 100 MG TABLET PO SCH (22:05)
[2023-08-27] MEDS: chlordiazePOXIDE HCL 10 MG CAPSULE PO SCH (05:26)
[2023-08-27] MEDS: ACETAMINOPHEN 325 MG TABLET (FP) PO PRN (05:27)
[2023-08-27 09:23] VITALS: BP 113/75; PULSE 79; TEMP 97.6
[2023-08-28] MEDS ORDERED: chlordiazePOXIDE HCL 10 MG CAPSULE PO ONE (05:00)
== END 2023-08-27 11:48 | disposition home or self-care (01) | DRG 775 ==
LOC: YASAS 20:46 → Y3N 08-26 01:38
PROVIDERS: ADMIT Allergy & Immunology; ATTEND Surgery
PROC: HZ2ZZZZ Detoxification Services for Substance Abuse Treatment (ICD-10-PCS; principal; 2023-08-26)
DX: F10.230 Alcohol dependence with withdrawal, uncomplicated (principal); F17.210 Nicotine dependence, cigarettes, uncomplicated; Z21 Asymptomatic human immunodeficiency virus [HIV] infection status; I10 Essential (primary) hypertension; Z79.899 Other long term (current) drug therapy
CPT/HCPCS: 36415; 80053; 80305; 80307; 85027; 86593; 86780; 93005; 93010

== ENCOUNTER 2023-09-20 09:22 | Inpatient (IN) | payer BC ==
[2023-09-20 09:55] VITALS: BMI 21.3
[2023-09-20] MEDS ORDERED: BENZOCAINE/MENTHOL (CHLORASEPTIC ) LOZENGE MM PRN (10:51)
[2023-09-20] MEDS ORDERED: MAG HYDROX/AL HYDROX/SIMETH 30 ML UNIT-DOSE CUP PO PRN (10:51)
[2023-09-20] MEDS ORDERED: NALOXONE HCL 0.4 MG/ML VIAL IM PRN (10:51)
[2023-09-20] MEDS ORDERED: DICYCLOMINE HCL 10 MG CAPSULE PO PRN (10:51)
[2023-09-20] MEDS ORDERED: LOPERAMIDE HCL 2 MG CAPSULE PO PRN (10:51)
[2023-09-20] MEDS ORDERED: LIDOCAINE 5% TOPICAL PATCH TP PRN (10:51)
[2023-09-20] MEDS ORDERED: guaiFENesin 600 MG TABLET.ER (FP) PO PRN (10:51)
[2023-09-20] MEDS ORDERED: MAGNESIUM HYDROX 2400MG/30ML ORAL SUSPENSION 30 ML CUP PO PRN (10:51)
[2023-09-20] MEDS ORDERED: BISMUTH SUBSALICYLATE 524 MG/30 ML PO PRN (10:51)
[2023-09-20] MEDS ORDERED: NALOXONE HCL (KLOXXADO) 8 MG SPRAY NS PRN (10:51)
[2023-09-20] MEDS ORDERED: BENZONATATE 200 MG CAPSULE PO PRN (10:51)
[2023-09-20] MEDS ORDERED: POLYETHYLENE GLYCOL (HEALTHYLAX) 3350 17 GM PACKET PO PRN (10:51)
[2023-09-20] MEDS ORDERED: chlordiazePOXIDE HCL 25 MG CAPSULE ONE (11:33)
[2023-09-20] MEDS: chlordiazePOXIDE HCL 25 MG CAPSULE PO ONE (11:42)
[2023-09-20] MEDS: METHOCARBAMOL 500 MG TABLET PO PRN (12:03)
[2023-09-20] MEDS ORDERED: METHOCARBAMOL 500 MG TABLET ONE (12:20)
[2023-09-20] MEDS: chlordiazePOXIDE HCL 25 MG CAPSULE PO SCH (17:25)
[2023-09-20] MEDS: GABAPENTIN 400 MG CAPSULE PO PRN (17:25)
[2023-09-20] MEDS: NICOTINE 21 MG/24 HOURS TOPICAL PATCH TD PRN (17:26)
[2023-09-20] MEDS: chlordiazePOXIDE HCL 25 MG CAPSULE PO PRN (18:57)
[2023-09-20] MEDS: MELATONIN 5 MG TABLETS PO SCH (22:12)
[2023-09-20] MEDS: LIDOCAINE PATCH REMOVAL MC SCH (22:13)
[2023-09-20] MEDS: THIAMINE 100 MG TABLET PO SCH (22:13)
[2023-09-21] MEDS: ACETAMINOPHEN 325 MG TABLET (FP) PO PRN (05:21)
[2023-09-21] MEDS: FAMOTIDINE 20 MG TABLET PO SCH (10:13)
[2023-09-21] MEDS: amLODIPine BESYLATE 10 MG TABLET (FP) PO SCH (10:13)
[2023-09-21] MEDS: PRENATAL VITAMINS W/ FOLIC ACID TABLET (FP) PO SCH (10:13)
[2023-09-21] MEDS: BICTEGRAV/EMTRICIT/TENOFOV (BIKTARVY) 50-200-25 MG TABLET PO SCH (10:13)
[2023-09-21] MEDS: LOSARTAN POTASSIUM 25 MG TABLET PO SCH (10:14)
[2023-09-21 11:58] LABS: HEMATOCRIT 32.6 % (35.4-49); HEMOGLOBIN 11.4 GM/dL (11.7-16.9); MCH 35.8 pg (25.7-33.7); MEAN CELL VOLUME 102.2 fl (80-96); MEAN PLT VOLUME 7.1 fl (7.5-11.1); PLATELET COUNT 175 10^3/uL (134-434); RBC 3.19 M/mm3 (4.00-5.60); RDW 13.9 % (11.9-15.9); WHITE BLOOD COUNT 2.4 K/mm3 (4.0-10.0)
[2023-09-21 12:13] LABS: CHLORIDE 107 mmol/L (98-107); POTASSIUM 3.6 mmol/L (3.5-5.1); SODIUM 138 mmol/L (136-145)
[2023-09-21] MEDS: hydrOXYzine PAMOATE 25 MG CAPSULE (FP) PO PRN (12:19)
[2023-09-21] MEDS: ONDANSETRON *ODT* 4 MG TABLET SL PRN (12:19)
[2023-09-21 12:26] LABS: CALCIUM 8.1 mg/dL (8.5-10.1)
[2023-09-21 12:27] LABS: ALBUMIN 2.8 g/dl (3.4-5.0); ANION GAP 8 mmol/L (4-13); BLOOD UREA NITROGEN 6.4 mg/dL (7-18); CO2 24 mmol/L (21-32); GLUCOSE,RANDOM 150 mg/dL (74-106)
[2023-09-21 12:29] LABS: SGPT/ALT 56 U/L (13-61)
[2023-09-21 12:30] LABS: SGOT/AST 107 U/L (15-37)
[2023-09-21 12:31] LABS: TOT PROT 5.8 g/dl (6.4-8.2)
[2023-09-21 12:32] LABS: ALK PHOS 89 U/L (45-117); BILIRUBIN,TOTAL 0.8 mg/dL (0.2-1)
[2023-09-21] MEDS: NICOTINE POLACRILEX 2 MG GUM BUC PRN (15:47)
[2023-09-21 21:11] VITALS: RESP 16
[2023-09-21] MEDS: LACTULOSE 20 GM/30 ML UDC (FOR ORAL USE ONLY) PO SCH (22:15)
[2023-09-21] MEDS: traZODone HCL 50 MG TABLET (FP) PO SCH (22:16)
[2023-09-22] MEDS: chlordiazePOXIDE HCL 25 MG CAPSULE PO SCH (05:18)
[2023-09-22 09:26] VITALS: TEMP 98.9
[2023-09-22 10:17] VITALS: BP 133/88; PULSE 90
[2023-09-22] MEDS: LACTULOSE 20 GM/30 ML UDC (FOR ORAL USE ONLY) PO SCH (13:21)
[2023-09-23] MEDS ORDERED: chlordiazePOXIDE HCL 10 MG CAPSULE PO PRN
[2023-09-23] MEDS ORDERED: chlordiazePOXIDE HCL 10 MG CAPSULE PO SCH (05:00)
[2023-09-24] MEDS ORDERED: chlordiazePOXIDE HCL 10 MG CAPSULE PO SCH (05:00)
[2023-09-25] MEDS ORDERED: chlordiazePOXIDE HCL 10 MG CAPSULE PO ONE (05:00)
== END 2023-09-22 15:00 | disposition left against medical advice (07) | DRG 770 ==
LOC: YASAS 09:22 → Y6N 12:04
PROVIDERS: ADMIT Allergy & Immunology; ATTEND Surgery
PROC: HZ2ZZZZ Detoxification Services for Substance Abuse Treatment (ICD-10-PCS; principal; 2023-09-20)
DX: F10.230 Alcohol dependence with withdrawal, uncomplicated (principal); F15.20 Other stimulant dependence, uncomplicated; F17.210 Nicotine dependence, cigarettes, uncomplicated; F10.280 Alcohol dependence with alcohol-induced anxiety disorder; F10.282 Alcohol dependence with alcohol-induced sleep disorder; F32.A Depression, unspecified; Z21 Asymptomatic human immunodeficiency virus [HIV] infection status; I10 Essential (primary) hypertension; K21.9 Gastro-esophageal reflux disease without esophagitis; R73.9 Hyperglycemia, unspecified; R79.89 Other specified abnormal findings of blood chemistry; Z86.19 Personal history of other infectious and parasitic diseases; Z86.69 Personal history of other diseases of the nervous system and sense organs; Z79.899 Other long term (current) drug therapy
CPT/HCPCS: 36415; 80053; 80305; 80307; 82140; 85027; 86593; 86780; 93005; 93010; Q0162

== ENCOUNTER 2023-11-11 17:45 | Inpatient (IN) | payer BC ==
[2023-11-11 18:25] VITALS: BMI 22.6
[2023-11-11] MEDS ORDERED: NICOTINE POLACRILEX 2 MG GUM BUC PRN (21:41)
[2023-11-11] MEDS ORDERED: MAG HYDROX/AL HYDROX/SIMETH 30 ML UNIT-DOSE CUP PO PRN (21:41)
[2023-11-11] MEDS ORDERED: LOPERAMIDE HCL 2 MG CAPSULE PO PRN (21:41)
[2023-11-11] MEDS ORDERED: BENZONATATE 200 MG CAPSULE PO PRN (21:41)
[2023-11-11] MEDS ORDERED: guaiFENesin 600 MG TABLET.ER (FP) PO PRN (21:41)
[2023-11-11] MEDS ORDERED: POLYETHYLENE GLYCOL (HEALTHYLAX) 3350 17 GM PACKET PO PRN (21:41)
[2023-11-11] MEDS ORDERED: NALOXONE (NARCAN) HCL 4 MG/0.1 ML SPRAY NS PRN (21:41)
[2023-11-11] MEDS ORDERED: NALOXONE HCL 0.4 MG/ML VIAL IM PRN (21:41)
[2023-11-11] MEDS ORDERED: BISMUTH SUBSALICYLATE 524 MG/30 ML PO PRN (21:41)
[2023-11-11] MEDS ORDERED: ACETAMINOPHEN 325 MG TABLET (FP) PO PRN (21:41)
[2023-11-11] MEDS ORDERED: DICYCLOMINE HCL 10 MG CAPSULE PO PRN (21:41)
[2023-11-11] MEDS ORDERED: BENZOCAINE/MENTHOL (CHLORASEPTIC ) LOZENGE MM PRN (21:41)
[2023-11-11] MEDS ORDERED: MAGNESIUM HYDROX 2400MG/30ML ORAL SUSPENSION 30 ML CUP PO PRN (21:41)
[2023-11-11] MEDS ORDERED: chlordiazePOXIDE HCL 25 MG CAPSULE PO PRN (21:43)
[2023-11-11] MEDS ORDERED: chlordiazePOXIDE HCL 25 MG CAPSULE ONE (22:26)
[2023-11-11] MEDS ORDERED: MELATONIN 5 MG TABLETS ONE (22:27)
[2023-11-11] MEDS: THIAMINE 100 MG TABLET PO SCH (22:29)
[2023-11-11] MEDS: MELATONIN 5 MG TABLETS PO SCH (22:29)
[2023-11-11] MEDS: chlordiazePOXIDE HCL 25 MG CAPSULE PO SCH (22:29)
[2023-11-12] MEDS: IBUPROFEN 600 MG TABLET (FP) PO PRN (05:54)
[2023-11-12] MEDS: BICTEGRAV/EMTRICIT/TENOFOV (BIKTARVY) 50-200-25 MG TABLET PO SCH (09:33)
[2023-11-12] MEDS: amLODIPine BESYLATE 10 MG TABLET (FP) PO SCH (09:33)
[2023-11-12] MEDS: hydrOXYzine PAMOATE 25 MG CAPSULE (FP) PO PRN (09:33)
[2023-11-12] MEDS: PRENATAL VITAMINS W/ FOLIC ACID TABLET (FP) PO SCH (09:33)
[2023-11-12] MEDS: METHOCARBAMOL 500 MG TABLET PO PRN (09:33)
[2023-11-12] MEDS: FAMOTIDINE 20 MG TABLET PO SCH (09:33)
[2023-11-12] MEDS: LOSARTAN POTASSIUM 25 MG TABLET PO SCH (09:33)
[2023-11-12] MEDS: NICOTINE 14 MG/24 HOURS TOPICAL PATCH TD SCH (09:33)
[2023-11-12 12:01] LABS: HEMATOCRIT 37.3 % (35.4-49); HEMOGLOBIN 12.9 GM/dL (11.7-16.9); MCH 34.4 pg (25.7-33.7); MCHC 34.6 g/dl (32.0-35.9); MEAN CELL VOLUME 99.3 fl (80-96); MEAN PLT VOLUME 7.6 fl (7.5-11.1); PLATELET COUNT 274 10^3/uL (134-434); RBC 3.76 M/mm3 (4.00-5.60); RDW 13.6 % (11.9-15.9); WHITE BLOOD COUNT 4.7 K/mm3 (4.0-10.0)
[2023-11-12 12:54] LABS: CHLORIDE 100 mmol/L (98-107); POTASSIUM 4.4 mmol/L (3.5-5.1); SODIUM 139 mmol/L (136-145)
[2023-11-12 12:56] LABS: CALCIUM 9.1 mg/dL (8.5-10.1)
[2023-11-12 12:57] LABS: ALBUMIN 3.6 g/dl (3.4-5.0); ANION GAP 9 mmol/L (4-13); BLOOD UREA NITROGEN 14.4 mg/dL (7-18); CO2 30 mmol/L (21-32); GLUCOSE,RANDOM 87 mg/dL (74-106)
[2023-11-12 13:00] LABS: CREATININE 0.9 mg/dL (0.55-1.3); SGOT/AST 44 U/L (15-37); SGPT/ALT 35 U/L (13-61)
[2023-11-12 13:01] LABS: TOT PROT 7.1 g/dl (6.4-8.2)
[2023-11-12 13:02] LABS: BILIRUBIN,TOTAL 0.4 mg/dL (0.2-1)
[2023-11-12 13:03] LABS: ALK PHOS 60 U/L (45-117)
[2023-11-12] MEDS: GABAPENTIN PO PRN (13:51)
[2023-11-12] MEDS: ONDANSETRON *ODT* 4 MG TABLET SL PRN (17:00)
[2023-11-12] MEDS: MIRTAZAPINE 15 MG TABLET (FP) PO SCH (22:03)
[2023-11-12] MEDS: IBUPROFEN 400 MG TABLET (FP) PO PRN (22:48)
[2023-11-13] MEDS: chlordiazePOXIDE HCL 25 MG CAPSULE PO SCH (05:34)
[2023-11-13] MEDS: NALTREXONE HCL 50 MG TABLET PO SCH (10:11)
[2023-11-13] MEDS: PENICILLIN G BENZATHINE 2,400,000 UNIT/4 ML PFS IM ONE (10:12)
[2023-11-14] MEDS ORDERED: chlordiazePOXIDE HCL 10 MG CAPSULE PO PRN
[2023-11-14] MEDS: chlordiazePOXIDE HCL 10 MG CAPSULE PO SCH (05:27)
[2023-11-15] MEDS: chlordiazePOXIDE HCL 10 MG CAPSULE PO SCH (05:26)
[2023-11-15 08:49] VITALS: BP 134/87; PULSE 85; RESP 18; TEMP 98.4
[2023-11-16] MEDS ORDERED: chlordiazePOXIDE HCL 10 MG CAPSULE PO ONE (05:00)
== END 2023-11-15 09:23 | disposition home or self-care (01) | DRG 775 ==
LOC: YASAS 17:45 → Y6N 21:19
PROVIDERS: ADMIT Allergy & Immunology; ATTEND Surgery
PROC: HZ2ZZZZ Detoxification Services for Substance Abuse Treatment (ICD-10-PCS; principal; 2023-11-11)
DX: F10.230 Alcohol dependence with withdrawal, uncomplicated (principal); F17.210 Nicotine dependence, cigarettes, uncomplicated; F10.282 Alcohol dependence with alcohol-induced sleep disorder; F10.280 Alcohol dependence with alcohol-induced anxiety disorder; F10.24 Alcohol dependence with alcohol-induced mood disorder; Z21 Asymptomatic human immunodeficiency virus [HIV] infection status; G62.9 Polyneuropathy, unspecified; I10 Essential (primary) hypertension; K21.9 Gastro-esophageal reflux disease without esophagitis; Z79.899 Other long term (current) drug therapy; Z86.19 Personal history of other infectious and parasitic diseases
CPT/HCPCS: 36415; 80053; 80305; 80307; 85027; 86593; 86780; 93005; 93010; Q0162

== ENCOUNTER 2024-04-24 13:23 | Inpatient (IN) | payer BC ==
[2024-04-24 14:10] VITALS: BMI 21.4
[2024-04-24] MEDS ORDERED: chlordiazePOXIDE HCL 25 MG CAPSULE PO PRN (14:23)
[2024-04-24] MEDS ORDERED: ACETAMINOPHEN 325 MG TABLET (FP) PO PRN (14:24)
[2024-04-24] MEDS ORDERED: guaiFENesin 600 MG TABLET.ER (FP) PO PRN (14:24)
[2024-04-24] MEDS ORDERED: BENZOCAINE/MENTHOL (CHLORASEPTIC ) LOZENGE MM PRN (14:24)
[2024-04-24] MEDS ORDERED: BISMUTH SUBSALICYLATE 524 MG/30 ML PO PRN (14:24)
[2024-04-24] MEDS ORDERED: BENZONATATE 200 MG CAPSULE PO PRN (14:24)
[2024-04-24] MEDS ORDERED: P-EPHED 60MG/TRIPROLIDI 2.5MG TABLET PO PRN (14:24)
[2024-04-24] MEDS ORDERED: MAGNESIUM HYDROX 2400MG/30ML ORAL SUSPENSION 30 ML CUP PO PRN (14:24)
[2024-04-24] MEDS ORDERED: MAG HYDROX/AL HYDROX/SIMETH 30 ML UNIT-DOSE CUP PO PRN (14:24)
[2024-04-24] MEDS ORDERED: NALOXONE (NARCAN) HCL 4 MG/0.1 ML SPRAY NS PRN (14:24)
[2024-04-24] MEDS ORDERED: IBUPROFEN 400 MG TABLET (FP) PO PRN (14:24)
[2024-04-24] MEDS ORDERED: NICOTINE POLACRILEX 2 MG LOZENGE BC PRN (14:24)
[2024-04-24] MEDS ORDERED: LOPERAMIDE HCL 2 MG CAPSULE PO PRN (14:24)
[2024-04-24] MEDS ORDERED: POLYETHYLENE GLYCOL (HEALTHYLAX) 3350 17 GM PACKET PO PRN (14:24)
[2024-04-24] MEDS ORDERED: DICYCLOMINE HCL 10 MG CAPSULE PO PRN (14:24)
[2024-04-24] MEDS ORDERED: NICOTINE POLACRILEX 2 MG GUM BUC PRN (14:24)
[2024-04-24] MEDS ORDERED: chlordiazePOXIDE HCL 25 MG CAPSULE ONE (14:42)
[2024-04-24] MEDS: chlordiazePOXIDE HCL 25 MG CAPSULE PO ONE (14:46)
[2024-04-24] MEDS ORDERED: IBUPROFEN 600 MG TABLET (FP) PO ONE (15:03)
[2024-04-24] MEDS ORDERED: ONDANSETRON *ODT* 4 MG TABLET ONE (15:03)
[2024-04-24] MEDS: IBUPROFEN 600 MG TABLET (FP) PO PRN (15:06)
[2024-04-24] MEDS: ONDANSETRON *ODT* 4 MG TABLET SL PRN (15:06)
[2024-04-24] MEDS: chlordiazePOXIDE HCL 25 MG CAPSULE PO SCH (17:38)
[2024-04-24] MEDS: hydrOXYzine PAMOATE 25 MG CAPSULE (FP) PO PRN (17:41)
[2024-04-24] MEDS: levETIRAcetam 500 MG TABLET (FP) PO SCH (22:43)
[2024-04-24] MEDS: THIAMINE 100 MG TABLET PO SCH (22:43)
[2024-04-24] MEDS: MIRTAZAPINE 15 MG TABLET (FP) PO SCH (22:43)
[2024-04-24] MEDS: MELATONIN 5 MG TABLETS PO SCH (22:43)
[2024-04-24] MEDS: METHOCARBAMOL 500 MG TABLET PO PRN (22:45)
[2024-04-25 09:22] LABS: CHLORIDE 104 mmol/L (98-107); POTASSIUM 3.6 mmol/L (3.5-5.1); SODIUM 137 mmol/L (136-145)
[2024-04-25 09:28] LABS: ALBUMIN 2.4 g/dl (3.4-5.0); ANION GAP 7 mmol/L (4-13); BLOOD UREA NITROGEN 3.9 mg/dL (7-18); CO2 26 mmol/L (21-32); GLUCOSE,RANDOM 101 mg/dL (74-106)
[2024-04-25 09:31] LABS: CREATININE 0.7 mg/dL (0.55-1.3); HEMATOCRIT 30.7 % (35.4-49); HEMOGLOBIN 10.6 GM/dL (11.7-16.9); MCH 37.1 pg (25.7-33.7); MCHC 34.5 g/dl (32.0-35.9); MEAN CELL VOLUME 107.6 fl (80-96); MEAN PLT VOLUME 7.8 fl (7.5-11.1); PLATELET COUNT 115 10^3/uL (134-434); RBC 2.85 M/mm3 (4.00-5.60); RDW 14.9 % (11.9-15.9); SGOT/AST 281 U/L (15-37); SGPT/ALT 83 U/L (13-61); WHITE BLOOD COUNT 2.5 K/mm3 (4.0-10.0)
[2024-04-25 09:33] LABS: BILIRUBIN,TOTAL 0.3 mg/dL (0.2-1); TOT PROT 5.6 g/dl (6.4-8.2)
[2024-04-25 09:34] LABS: ALK PHOS 176 U/L (45-117)
[2024-04-25] MEDS: PRENATAL VITAMINS W/ FOLIC ACID TABLET (FP) PO SCH (09:58)
[2024-04-25] MEDS: BICTEGRAV/EMTRICIT/TENOFOV (BIKTARVY) 50-200-25 MG TABLET PO SCH (09:58)
[2024-04-25] MEDS: FAMOTIDINE 20 MG TABLET PO SCH (10:01)
[2024-04-25] MEDS: LORazepam 1 MG TABLET PO SCH (16:59)
[2024-04-26] MEDS ORDERED: chlordiazePOXIDE HCL 25 MG CAPSULE PO SCH (05:00)
[2024-04-26] MEDS: LORazepam 1 MG TABLET PO PRN (20:07)
[2024-04-27] MEDS ORDERED: chlordiazePOXIDE HCL 10 MG CAPSULE PO PRN
[2024-04-27] MEDS ORDERED: chlordiazePOXIDE HCL 10 MG CAPSULE PO SCH (05:00)
[2024-04-27] MEDS: LORazepam 1 MG TABLET PO SCH (05:58)
[2024-04-28] MEDS ORDERED: LORazepam 0.5 MG TABLET PO PRN
[2024-04-28] MEDS ORDERED: chlordiazePOXIDE HCL 10 MG CAPSULE PO SCH (05:00)
[2024-04-28] MEDS: LORazepam 0.5 MG TABLET PO SCH (05:42)
[2024-04-28 09:18] VITALS: BP 145/99; PULSE 95; RESP 18; TEMP 97.6
[2024-04-28] MEDS: NALOXONE (NYS OPIOID OVERDOSE PROGRAM) 4 MG/0.1 ML SPRAY NS SCH (09:22)
[2024-04-29] MEDS ORDERED: chlordiazePOXIDE HCL 10 MG CAPSULE PO ONE (05:00)
[2024-04-29] MEDS ORDERED: LORazepam 0.5 MG TABLET PO ONE (05:00)
== END 2024-04-28 11:12 | disposition home or self-care (01) | DRG 775 ==
LOC: YASAS 13:23 → Y6N 14:47
PROVIDERS: ADMIT Neuromusculoskeletal Medicine & OMM; ATTEND Neuromusculoskeletal Medicine & OMM
PROC: HZ2ZZZZ Detoxification Services for Substance Abuse Treatment (ICD-10-PCS; principal; 2024-04-24)
DX: F10.230 Alcohol dependence with withdrawal, uncomplicated (principal); F15.20 Other stimulant dependence, uncomplicated; F17.210 Nicotine dependence, cigarettes, uncomplicated; F10.282 Alcohol dependence with alcohol-induced sleep disorder; F10.280 Alcohol dependence with alcohol-induced anxiety disorder; F10.24 Alcohol dependence with alcohol-induced mood disorder; Z21 Asymptomatic human immunodeficiency virus [HIV] infection status; I10 Essential (primary) hypertension; K21.9 Gastro-esophageal reflux disease without esophagitis; Z20.2 Contact with and (suspected) exposure to infections with a predominantly sexual mode of transmission; Z79.899 Other long term (current) drug therapy
CPT/HCPCS: 36415; 80053; 80305; 80307; 85027; 86593; 86780; Q0162

== ENCOUNTER 2024-09-25 16:38 | Inpatient (IN) | payer BC ==
[2024-09-25 16:54] VITALS: BMI 24.1
[2024-09-25] MEDS ORDERED: BENZONATATE 200 MG CAPSULE PO PRN (17:27)
[2024-09-25] MEDS ORDERED: MAG HYDROX/AL HYDROX/SIMETH 30 ML UNIT-DOSE CUP PO PRN (17:27)
[2024-09-25] MEDS ORDERED: NICOTINE POLACRILEX 2 MG GUM BUC PRN (17:27)
[2024-09-25] MEDS ORDERED: BISMUTH SUBSALICYLATE 524 MG/30 ML PO PRN (17:27)
[2024-09-25] MEDS ORDERED: BENZOCAINE/MENTHOL (CHLORASEPTIC ) LOZENGE MM PRN (17:27)
[2024-09-25] MEDS ORDERED: guaiFENesin 600 MG TABLET.ER (FP) PO PRN (17:27)
[2024-09-25] MEDS ORDERED: ACETAMINOPHEN 325 MG TABLET (FP) PO PRN (17:27)
[2024-09-25] MEDS ORDERED: NALOXONE (NARCAN) HCL 4 MG/0.1 ML SPRAY NS PRN (17:27)
[2024-09-25] MEDS ORDERED: MAGNESIUM HYDROX 2400MG/30ML ORAL SUSPENSION 30 ML CUP PO PRN (17:27)
[2024-09-25] MEDS ORDERED: DICYCLOMINE HCL 10 MG CAPSULE PO PRN (17:27)
[2024-09-25] MEDS ORDERED: POLYETHYLENE GLYCOL (HEALTHYLAX) 3350 17 GM PACKET PO PRN (17:27)
[2024-09-25] MEDS ORDERED: IBUPROFEN 400 MG TABLET (FP) PO ONE (18:35)
[2024-09-25] MEDS ORDERED: ONDANSETRON *ODT* 4 MG TABLET ONE (18:35)
[2024-09-25] MEDS ORDERED: chlordiazePOXIDE HCL 25 MG CAPSULE ONE (18:35)
[2024-09-25] MEDS: chlordiazePOXIDE HCL 25 MG CAPSULE PO PRN (18:37)
[2024-09-25] MEDS: ONDANSETRON *ODT* 4 MG TABLET SL PRN (18:37)
[2024-09-25] MEDS: IBUPROFEN 400 MG TABLET (FP) PO PRN (18:38)
[2024-09-25] MEDS: THIAMINE 100 MG TABLET PO SCH (22:30)
[2024-09-25] MEDS: MELATONIN 5 MG TABLETS PO SCH (22:30)
[2024-09-25] MEDS: FAMOTIDINE 20 MG TABLET PO SCH (22:30)
[2024-09-25] MEDS: chlordiazePOXIDE HCL 25 MG CAPSULE PO SCH (22:31)
[2024-09-26 09:20] LABS: HEMATOCRIT 33.9 % (40.1-51.0); MCHC 32.4 g/dl (32.3-36.5); MEAN CELL VOLUME 92.6 fl (79.0-92.2); MEAN PLT VOLUME 9.7 fl (9.4-12.4); PLATELET COUNT 365 x10^3/uL (163-337); RDW 15.2 % (12.1-15.9)
[2024-09-26 09:23] LABS: CHLORIDE 106 mmol/L (98-107); POTASSIUM 4.2 mmol/L (3.5-5.1); SODIUM 140 mmol/L (136-145)
[2024-09-26 09:26] LABS: CALCIUM 9.1 mg/dL (8.5-10.1)
[2024-09-26 09:27] LABS: ALBUMIN 3.2 g/dl (3.4-5.0); ANION GAP 6 mmol/L (4-13); BLOOD UREA NITROGEN 18.1 mg/dL (7-18); CO2 29 mmol/L (21-32); GLUCOSE,RANDOM 87 mg/dL (74-106)
[2024-09-26 09:30] LABS: SGOT/AST 44 U/L (15-37); SGPT/ALT 45 U/L (13-61)
[2024-09-26 09:31] LABS: BILIRUBIN,TOTAL 0.5 mg/dL (0.2-1)
[2024-09-26 09:32] LABS: TOT PROT 6.9 g/dl (6.4-8.2)
[2024-09-26 09:33] LABS: ALK PHOS 51 U/L (45-117)
[2024-09-26] MEDS: amLODIPine BESYLATE 10 MG TABLET (FP) PO SCH (10:13)
[2024-09-26] MEDS: LOSARTAN POTASSIUM 25 MG TABLET PO SCH (10:13)
[2024-09-26] MEDS: PRENATAL VITAMINS W/ FOLIC ACID TABLET (FP) PO SCH (10:13)
[2024-09-26] MEDS: BICTEGRAV/EMTRICIT/TENOFOV (BIKTARVY) 50-200-25 MG TABLET PO SCH (10:14)
[2024-09-26] MEDS: NICOTINE 14 MG/24 HOURS TOPICAL PATCH TD SCH (10:14)
[2024-09-26] MEDS: LOPERAMIDE HCL 2 MG CAPSULE PO PRN (10:15)
[2024-09-26] MEDS: hydrOXYzine PAMOATE 25 MG CAPSULE (FP) PO PRN (13:34)
[2024-09-26] MEDS: METHOCARBAMOL 500 MG TABLET PO PRN (17:15)
[2024-09-26] MEDS: MIRTAZAPINE 15 MG TABLET (FP) PO SCH (22:05)
[2024-09-27] MEDS: chlordiazePOXIDE HCL 25 MG CAPSULE PO SCH (06:01)
[2024-09-27] MEDS: IBUPROFEN 600 MG TABLET (FP) PO PRN (06:06)
[2024-09-27] MEDS ORDERED: cloNIDine HCL 0.1 MG TABLET PO PRN (15:14)
[2024-09-27] MEDS: GABAPENTIN 300 MG CAPSULE PO SCH (15:30)
[2024-09-27] MEDS: METHOCARBAMOL 500 MG TABLET PO PRN (22:09)
[2024-09-28] MEDS ORDERED: chlordiazePOXIDE HCL 10 MG CAPSULE PO PRN
[2024-09-28] MEDS: chlordiazePOXIDE HCL 10 MG CAPSULE PO SCH (05:39)
[2024-09-29] MEDS: chlordiazePOXIDE HCL 10 MG CAPSULE PO SCH (05:24)
[2024-09-30] MEDS: chlordiazePOXIDE HCL 10 MG CAPSULE PO ONE (05:31)
[2024-09-30 08:44] VITALS: BP 126/86; PULSE 100; RESP 20; TEMP 97
== END 2024-09-30 08:36 | disposition home or self-care (01) | DRG 775 ==
LOC: YASAS 16:38 → Y3N 18:10
PROVIDERS: ADMIT Family Medicine; ATTEND Family Medicine
PROC: HZ2ZZZZ Detoxification Services for Substance Abuse Treatment (ICD-10-PCS; principal; 2024-09-25)
DX: F10.230 Alcohol dependence with withdrawal, uncomplicated (principal); F41.9 Anxiety disorder, unspecified; F32.A Depression, unspecified; Z21 Asymptomatic human immunodeficiency virus [HIV] infection status; I10 Essential (primary) hypertension; G40.909 Epilepsy, unspecified, not intractable, without status epilepticus; M54.50 Low back pain, unspecified; Z86.19 Personal history of other infectious and parasitic diseases
CPT/HCPCS: 36415; 80053; 80305; 80307; 85027; 86593; 86780; Q0162